=== PATIENT | female | born 1995 | race Caucasian/White ===

== ENCOUNTER 2020-04-23 08:01 | Emergency (ER) | payer MEDICAID, SELFPAY ==
--- NOTE | ~2020-04-23 | XR_ITS ---
XR chest 2V DATE: 04/23/2020 08:25 INDICATION: Shortness of breath and wheezing TECHNIQUE: PA and lateral views COMPARISON: 10/21/2003 2 view chest FINDINGS: Normal heart size. No hilar or mediastinal enlargement. Bilateral hyperinflation. No pulmonary infiltrate or consolidation, pleural effusion or pulmonary vas cular congestion or pneumothorax. IMPRESSION: Bilateral hyperinflation Reviewed, dictated and finalized at location A. GRADER IMPRESSION: Bilateral hyperinflation
[2020-04-23 08:12] VITALS: BP 149/110; PULSE 101; RESP 20; TEMP 36; O2SAT 97
[2020-04-23 08:14] VITALS: BP 149/110; PULSE 101; RESP 20; TEMP 36; O2SAT 97
--- NOTE | 2020-04-23 08:15 | ED.GENADULT ---
HPI - General Adult General Chief complaint: Upper Respiratory Infection Stated complaint: difficulty breathing/wheezing Time Seen by Provider: 04/23/20 08:15 Source: patient and RN notes reviewed Mode of arrival: ambulatory Limitations: no limitations History of Present Illness HPI narrative: 24-year-old female presents with complains of dry cough and wheezing for 1 day. Lucinda reports symptoms increased throughout the night with intermittent shortness of breath and wheezing. No treatment. Reports inhalers are . Dry cough without chest congestion. Rhinorrhea and nasal congestion. Denies sore throat. No high fevers, drooling, neck or throat swelling. No chest pain. Exacerbation factors consists if change in weather and smoke exposure. Denies nausea, vomiting, and abdominal pain. Tolerating liquids well. LMP 4 weeks ago and irregular. Remains active. The patient reports she have not been diagnosed with COVID-19. The patient reports she is not waiting for the results of a COVID-19 lab test. The patient reports she do not have chills, weakness, or fatigue. The patient reports she do not have a worsening cough. The patient reports she do not have any loss of taste, nausea, and diarrhea. Denies recent traveling. Denies concerns for COVID-19 or exposures been home with limited outdoor exposure except for essential household needs and return home. At this time, patient is not suspected of having COVID-19. Some parts of this dictation were generated by voice recognition software and may contain typographical and/or grammatical inaccuracies. Related Data Home Medications Medication Instructions Recorded Confirmed sertraline mg 04/23/20 Allergies Allergy/AdvReac Type Severity Reaction Status Date / Time Penicillins Allergy Mild Verified 10/22/15 17:43 Review of Systems Review of Systems: Narrative: CONSTITUTIONAL: Denies fever, chills, sweats. EYES: Denies visual changes, redness, discharge. ENT: Complains of rhinorrhea, congestion. Denies sore throat, otalgia. CARDIOVASCULAR: Denies chest pain, palpitations, edema. RESPIRATORY: Complains of intermittent dyspnea, wheezing, dry cough. GASTROINTESTINAL: Denies abdominal pain, nausea, vomiting, diarrhea. SKIN: Denies rash or itching. MUSCULOSKELETAL: Denies acute back pain, joint pain, or myalgia. NEUROLOGIC: Denies numbness or focal weakness. PSYCHIATRIC: Denies anxiety or depression. All systems reviewed & are unremarkable except as noted in HPI and below PMFSH Past Medical History Medical History (Updated 04/23/20 @ 08:47 by LAVERNE Guerrier) Allergies Anxiety Asthma Bipolar disorder History of manic depressive disorder OCD (obsessive compulsive disorder) Surgical History Surgical History (Updated 04/23/20 @ 08:29 by LAVERNE Guerrier) No significant past surgical history Family History Family History (Updated 04/23/20 @ 08:29 by LAVERNE Guerrier) Father Hypertension Mother Alive and well Social History Social History (Updated 04/23/20 @ 08:29 by LAVERNE Guerrier) Smoking status: Light tobacco smoker Tobacco type: cigarettes Second hand tobacco smoke exposure: No Alcohol intake: current Substance use: current Substance use type: marijuana Living arrangements: with family Occupation/Education: student Gender identity (if verbalized by the patient): Female Sexual Orientation (if Verbalized by the Patient): Straight or Heterosexual Comments At time of signature, agree with nurse past medical, surgical, social, and family history. There is relevant patient's past medical history pertinent to the presenting complaint, no relevant family history pertinent to the presenting complaint. Exam Narrative: Exam Narrative: GENERAL: This is a well-nourished, well-developed patient, in no apparent distress. Talks in full sentences and ambulates with steady gait without dyspnea. HEAD: normo
--- NOTE | 2020-04-23 08:40 | PC.NURSE ---
Manual BP 138/108
== END 2020-04-23 10:11 | disposition home or self-care (01) ==
PROVIDERS: Emergency Provider Nurse Practitioner Family
DX: J45.901 Unspecified asthma with (acute) exacerbation (principal); R91.8 Other nonspecific abnormal finding of lung field; F17.210 Nicotine dependence, cigarettes, uncomplicated; F41.9 Anxiety disorder, unspecified; F33.9 Major depressive disorder, recurrent, unspecified
CPT/HCPCS: 71046; 99203; G0463